=== PATIENT | male | born 1950 | race Caucasian/White ===

== ENCOUNTER 2017-01-01 14:32 | Inpatient (IN) | payer MEDICARE, OTHER ==
[~2017-01-01 14:32] MED LIST: ACETAMINOPHEN325 M2 PO; ALLOPURINOL300 M1 PO; AMPICILLIN SODIU2 G1 IV; ASMANEX220 MC3 IH; ASPIRIN325 M3 PO; ATENOLOL50 M1 PO; CALCIUM ACETAT667 M3 PO; CEFTRIAXONE2 GM IV; FUROSEMIDE40 M2 PO; LANTUS100 UNITS/ SC; LASIX40 M1 PO; LISINOPRIL40 M1 PO; MIRALAX17 G2 PO; MUCINEX600 M1 PO; NORVASC5 M2 PO; NOVOLOG FL100 UNIT/2 SC; OXYCONTIN10 M2 PO; PERCOCET 5-3251 EACH PO; PRAVASTATIN SOD80 M1 PO; PREVACID15 M2 PO; PROMETHAZINE HC25 M3 PO; SENOKOT-S TABL1 EACH PO; SODIUM BICARBO650 M1 PO; TYLENOL325 M2 PO
[2017-01-01] MEDS ORDERED: LIPITOR40 M1 PO (15:12)
[2017-01-01 17:04] LABS: URINE BILIRUBIN NEGATIVE (NEG); URINE BLOOD LARGE (NEG); URINE GLUCOSE (UA) NEGATIVE (NEG); URINE KETONE NEGATIVE (NEG); URINE LEUKOCYTE ESTERASE NEGATIVE (NEG); URINE NITRITE NEGATIVE (NEG); URINE PROTEIN LARGE (NEG); URINE SPECIFIC GRAVITY 1.015 (1.003-1.030)
[2017-01-01 17:05] LABS: URINE APPEARANCE CLEAR; URINE COLOR YELLOW
[2017-01-01 17:11] LABS: URINE EPITHELIAL CELLS RARE /[HPF] (0-10); URINE RBC 15-20 /[HPF] (0-5); URINE WBC 0-3 /[HPF] (0-5)
[2017-01-01 17:12] LABS: URINE AMORPHOUS 1+
[2017-01-01 17:55] LABS: ALBUMIN 2.2 g/dl (3.5-5.0); ANION GAP 16 mmol/L (0-20); BLOOD UREA NITROGEN 78 mg/dl (6-24); CALCIUM 7.8 mg/dl (8.5-10.5); CARBON DIOXIDE-VENOUS 17 mmol/L (22-32); CHLORIDE 104 mmol/l (96-110); CREATININE 3.67 mg/dl (0.60-1.30); GLUCOSE 113 mg/dL (70-110); PHOSPHOROUS 5.1 mg/dl (2.5-4.9); POTASSIUM 4.7 mmol/L (3.7-5.1); SODIUM 132 mmol/L (135-145); eGFR VALUE FOR BLACK 19 mL/Min
[2017-01-01 18:04] LABS: PROCALCITONIN 2.04 ng/ml (0.05-0.09)
[2017-01-01 18:21] LABS: URINE CREATININE-RANDOM 95 mg/dl (30-125); URINE SODIUM-RANDOM 35 mmol/L (20-110)
[2017-01-02 05:07] LABS: BASO % 0.1 % (0-2); EOS % 0.1 % (0-7); HGB-HEMOGLOBIN 7.4 gm/dl (13.5-17.0); IMMATURE GRANULOCYTES ABSOLUTE 0.04 tho/cmm (0-0.03); IMMATURE GRANULOCYTES PERCENT 0.6 % (0-0.3); LYMPH % 12.3 % (20-45); LYMPH ABSOLUTE COUNT 0.9 tho/cmm (0.8-4.5); MCH (MEAN CORPUSCULAR HGB) 26.5 pg (28.0-32.0); MCHC MEAN CORPUSCULAR HGB CONC 32.5 % (32.0-36.0); MCV (MEAN CELL VOLUME) 81.7 fl (82.0-96.0); MEAN PLATELET VOLUME 9.4 cmc (9.4-12.4); MONO % 4.8 % (0-12); MONOCYTE ABSOLUTE COUNT 0.3 tho/cmm (0.0-1.2); NEUTROPHIL ABSOLUTE COUNT 5.9 tho/cmm (1.6-8.0); NEUTROPHIL-AUTOMATED 5.9 tho/cmm (1.6-8.0); NEUTROPHILS % 82.1 % (40-80); PLATELET COUNT 121 tho/cmm (150-450); RED BLOOD COUNT 2.79 mil/cmm (4.40-5.70); RED CELL DISTRIBUTION WIDTH 16.6 % (12.4-16.4); WHITE BLOOD COUNT 7.2 tho/cmm (4.0-10.0)
[2017-01-02 05:12] LABS: HCT-HEMATOCRIT 22.8 % (36.0-53.5)
[2017-01-02 05:30] LABS: ALB/GLOB RATIO 0.4 (0.8-2.0); ALKALINE PHOSPHATASE 182 U/L (33-138); ALT/SGPT 39 U/L (12-78); ANION GAP 17 mmol/L (0-20); AST/SGOT 32 U/L (10-40); BILIRUBIN,TOTAL 0.4 mg/dl (0.0-1.5); BLOOD UREA NITROGEN 77 mg/dl (6-24); CALCIUM 7.7 mg/dl (8.5-10.5); CARBON DIOXIDE-VENOUS 16 mmol/L (22-32); CHLORIDE 107 mmol/l (96-110); FERRITIN 401 ng/ml (22-388); GLUCOSE 115 mg/dL (70-110); MAGNESIUM 2.1 mg/dl (1.8-2.6); PHOSPHOROUS 5.3 mg/dl (2.5-4.9); POTASSIUM 5.1 mmol/L (3.7-5.1); SODIUM 135 mmol/L (135-145); eGFR VALUE FOR BLACK 19 mL/Min
[2017-01-02 05:35] LABS: IRON 31 ug/dl (49-181); IRON BINDING CAPACITY 169 ug/dl (250-450)
[2017-01-02 06:38] LABS: PROCALCITONIN 2.05 ng/ml (0.05-0.09)
[2017-01-02 12:52] LABS: PF4 (HIT) ANTIBODY POSITIVE (NEGATIVE)
[2017-01-03 06:21] LABS: BASO % 0.1 % (0-2); EOS % 0.3 % (0-7); HGB-HEMOGLOBIN 7.9 gm/dl (13.5-17.0); IMMATURE GRANULOCYTES ABSOLUTE 0.04 tho/cmm (0-0.03); IMMATURE GRANULOCYTES PERCENT 0.4 % (0-0.3); LYMPH % 8.9 % (20-45); LYMPH ABSOLUTE COUNT 0.9 tho/cmm (0.8-4.5); MCH (MEAN CORPUSCULAR HGB) 27.2 pg (28.0-32.0); MCV (MEAN CELL VOLUME) 81.4 fl (82.0-96.0); MEAN PLATELET VOLUME 9.2 cmc (9.4-12.4); MONO % 4.3 % (0-12); MONOCYTE ABSOLUTE COUNT 0.4 tho/cmm (0.0-1.2); NEUTROPHIL ABSOLUTE COUNT 8.3 tho/cmm (1.6-8.0); NEUTROPHIL-AUTOMATED 8.3 tho/cmm (1.6-8.0); PLATELET COUNT 141 tho/cmm (150-450); WHITE BLOOD COUNT 9.7 tho/cmm (4.0-10.0)
[2017-01-03 06:23] LABS: HCT-HEMATOCRIT 23.6 % (36.0-53.5); MCHC MEAN CORPUSCULAR HGB CONC 33.5 % (32.0-36.0)
[2017-01-03 06:39] LABS: ALB/GLOB RATIO 0.4 (0.8-2.0); ALBUMIN 1.9 g/dl (3.5-5.0); ALKALINE PHOSPHATASE 198 U/L (33-138); ALT/SGPT 38 U/L (12-78); ANION GAP 16 mmol/L (0-20); AST/SGOT 35 U/L (10-40); BILIRUBIN,TOTAL 0.3 mg/dl (0.0-1.5); BLOOD UREA NITROGEN 81 mg/dl (6-24); CALCIUM 7.6 mg/dl (8.5-10.5); CARBON DIOXIDE-VENOUS 17 mmol/L (22-32); CHLORIDE 110 mmol/l (96-110); GLUCOSE 85 mg/dL (70-110); MAGNESIUM 2.2 mg/dl (1.8-2.6); SODIUM 138 mmol/L (135-145); eGFR VALUE FOR BLACK 19 mL/Min
[2017-01-03 07:35] LABS: PROCALCITONIN 1.83 ng/ml (0.05-0.09)
[2017-01-04 05:53] LABS: BASO % 0.2 % (0-2); EOS % 0.6 % (0-7); EOSINOPHIL ABSOLUTE COUNT 0.1 tho/cmm (0.0-0.7); HCT-HEMATOCRIT 25.1 % (36.0-53.5); HGB-HEMOGLOBIN 8.2 gm/dl (13.5-17.0); IMMATURE GRANULOCYTES ABSOLUTE 0.03 tho/cmm (0-0.03); IMMATURE GRANULOCYTES PERCENT 0.3 % (0-0.3); LYMPH ABSOLUTE COUNT 0.6 tho/cmm (0.8-4.5); MCH (MEAN CORPUSCULAR HGB) 26.9 pg (28.0-32.0); MCHC MEAN CORPUSCULAR HGB CONC 32.7 % (32.0-36.0); MCV (MEAN CELL VOLUME) 82.3 fl (82.0-96.0); MEAN PLATELET VOLUME 9.1 cmc (9.4-12.4); MONO % 4.1 % (0-12); MONOCYTE ABSOLUTE COUNT 0.4 tho/cmm (0.0-1.2); NEUTROPHIL ABSOLUTE COUNT 8.4 tho/cmm (1.6-8.0); NEUTROPHIL-AUTOMATED 8.4 tho/cmm (1.6-8.0); NEUTROPHILS % 88.8 % (40-80); PLATELET COUNT 156 tho/cmm (150-450); RED BLOOD COUNT 3.05 mil/cmm (4.40-5.70); RED CELL DISTRIBUTION WIDTH 17.3 % (12.4-16.4); WHITE BLOOD COUNT 9.4 tho/cmm (4.0-10.0)
[2017-01-04 06:04] LABS: ANION GAP 15 mmol/L (0-20); BLOOD UREA NITROGEN 81 mg/dl (6-24); CALCIUM 7.7 mg/dl (8.5-10.5); CARBON DIOXIDE-VENOUS 17 mmol/L (22-32); CHLORIDE 108 mmol/l (96-110); CREATININE 3.62 mg/dl (0.60-1.30); GLUCOSE 113 mg/dL (70-110); PHOSPHOROUS 5.9 mg/dl (2.5-4.9); POTASSIUM 4.7 mmol/L (3.7-5.1); SODIUM 135 mmol/L (135-145); eGFR VALUE FOR BLACK 19 mL/Min
[2017-01-04 23:04] LABS: MAGNESIUM 2.2 mg/dl (1.8-2.6); POTASSIUM 4.2 mmol/L (3.7-5.1)
[2017-01-05 07:06] LABS: BASO % 0.1 % (0-2); EOS % 1.1 % (0-7); EOSINOPHIL ABSOLUTE COUNT 0.1 tho/cmm (0.0-0.7); HCT-HEMATOCRIT 25.5 % (36.0-53.5); HGB-HEMOGLOBIN 8.3 gm/dl (13.5-17.0); IMMATURE GRANULOCYTES ABSOLUTE 0.03 tho/cmm (0-0.03); IMMATURE GRANULOCYTES PERCENT 0.4 % (0-0.3); LYMPH ABSOLUTE COUNT 0.7 tho/cmm (0.8-4.5); MCH (MEAN CORPUSCULAR HGB) 26.6 pg (28.0-32.0); MCHC MEAN CORPUSCULAR HGB CONC 32.5 % (32.0-36.0); MCV (MEAN CELL VOLUME) 81.7 fl (82.0-96.0); MEAN PLATELET VOLUME 8.9 cmc (9.4-12.4); MONOCYTE ABSOLUTE COUNT 0.3 tho/cmm (0.0-1.2); NEUTROPHIL ABSOLUTE COUNT 7.2 tho/cmm (1.6-8.0); NEUTROPHIL-AUTOMATED 7.2 tho/cmm (1.6-8.0); NEUTROPHILS % 86.4 % (40-80); PLATELET COUNT 165 tho/cmm (150-450); RED BLOOD COUNT 3.12 mil/cmm (4.40-5.70); RED CELL DISTRIBUTION WIDTH 17.1 % (12.4-16.4); WHITE BLOOD COUNT 8.3 tho/cmm (4.0-10.0)
[2017-01-05 07:13] LABS: ANION GAP 17 mmol/L (0-20); BLOOD UREA NITROGEN 80 mg/dl (6-24); CALCIUM 7.9 mg/dl (8.5-10.5); CARBON DIOXIDE-VENOUS 18 mmol/L (22-32); CHLORIDE 108 mmol/l (96-110); CREATININE 3.71 mg/dl (0.60-1.30); GLUCOSE 107 mg/dL (70-110); MAGNESIUM 2.1 mg/dl (1.8-2.6); POTASSIUM 4.5 mmol/L (3.7-5.1); SODIUM 138 mmol/L (135-145); eGFR VALUE FOR BLACK 19 mL/Min
[2017-01-06 04:26] LABS: BASO % 0.1 % (0-2); EOS % 1.3 % (0-7); EOSINOPHIL ABSOLUTE COUNT 0.1 tho/cmm (0.0-0.7); HGB-HEMOGLOBIN 7.5 gm/dl (13.5-17.0); IMMATURE GRANULOCYTES ABSOLUTE 0.05 tho/cmm (0-0.03); IMMATURE GRANULOCYTES PERCENT 0.7 % (0-0.3); LYMPH % 11.8 % (20-45); LYMPH ABSOLUTE COUNT 0.8 tho/cmm (0.8-4.5); MCH (MEAN CORPUSCULAR HGB) 26.7 pg (28.0-32.0); MCHC MEAN CORPUSCULAR HGB CONC 32.5 % (32.0-36.0); MCV (MEAN CELL VOLUME) 82.2 fl (82.0-96.0); MEAN PLATELET VOLUME 8.9 cmc (9.4-12.4); MONO % 5.1 % (0-12); MONOCYTE ABSOLUTE COUNT 0.3 tho/cmm (0.0-1.2); NEUTROPHIL ABSOLUTE COUNT 5.4 tho/cmm (1.6-8.0); NEUTROPHIL-AUTOMATED 5.4 tho/cmm (1.6-8.0); PLATELET COUNT 151 tho/cmm (150-450); RED BLOOD COUNT 2.81 mil/cmm (4.40-5.70); RED CELL DISTRIBUTION WIDTH 17.5 % (12.4-16.4); WHITE BLOOD COUNT 6.7 tho/cmm (4.0-10.0)
[2017-01-06 04:30] LABS: HCT-HEMATOCRIT 23.1 % (36.0-53.5)
[2017-01-06 04:43] LABS: ALBUMIN 1.7 g/dl (3.5-5.0); ANION GAP 17 mmol/L (0-20); BLOOD UREA NITROGEN 82 mg/dl (6-24); CALCIUM 7.5 mg/dl (8.5-10.5); CARBON DIOXIDE-VENOUS 20 mmol/L (22-32); CHLORIDE 105 mmol/l (96-110); CREATININE 4.05 mg/dl (0.60-1.30); GLUCOSE 87 mg/dL (70-110); MAGNESIUM 2.1 mg/dl (1.8-2.6); PHOSPHOROUS 7.5 mg/dl (2.5-4.9); POTASSIUM 3.7 mmol/L (3.7-5.1); SODIUM 138 mmol/L (135-145); eGFR VALUE FOR BLACK 17 mL/Min
[2017-01-07 04:11] LABS: BASO % 0.2 % (0-2); EOS % 1.4 % (0-7); EOSINOPHIL ABSOLUTE COUNT 0.1 tho/cmm (0.0-0.7); HGB-HEMOGLOBIN 7.4 gm/dl (13.5-17.0); IMMATURE GRANULOCYTES ABSOLUTE 0.05 tho/cmm (0-0.03); IMMATURE GRANULOCYTES PERCENT 0.6 % (0-0.3); LYMPH % 8.9 % (20-45); LYMPH ABSOLUTE COUNT 0.7 tho/cmm (0.8-4.5); MCH (MEAN CORPUSCULAR HGB) 27.1 pg (28.0-32.0); MCV (MEAN CELL VOLUME) 83.2 fl (82.0-96.0); MEAN PLATELET VOLUME 8.8 cmc (9.4-12.4); MONO % 5.1 % (0-12); MONOCYTE ABSOLUTE COUNT 0.4 tho/cmm (0.0-1.2); NEUTROPHILS % 83.8 % (40-80); PLATELET COUNT 150 tho/cmm (150-450); RED BLOOD COUNT 2.73 mil/cmm (4.40-5.70); RED CELL DISTRIBUTION WIDTH 17.4 % (12.4-16.4); WHITE BLOOD COUNT 8.3 tho/cmm (4.0-10.0)
[2017-01-07 04:18] LABS: INR 1.2 INR (0.9-1.1); PROTHROMBIN TIME 13.6 SECONDS (9.0-13.6)
[2017-01-07 04:25] LABS: ANION GAP 14 mmol/L (0-20); BLOOD UREA NITROGEN 75 mg/dl (6-24); CALCIUM 7.1 mg/dl (8.5-10.5); CARBON DIOXIDE-VENOUS 21 mmol/L (22-32); CHLORIDE 108 mmol/l (96-110); CREATININE 3.82 mg/dl (0.60-1.30); GLUCOSE 86 mg/dL (70-110); HCT-HEMATOCRIT 22.7 % (36.0-53.5); MCHC MEAN CORPUSCULAR HGB CONC 32.6 % (32.0-36.0); POTASSIUM 3.4 mmol/L (3.7-5.1); SODIUM 140 mmol/L (135-145); eGFR VALUE FOR BLACK 18 mL/Min
[2017-01-08 05:26] LABS: BASO % 0.3 % (0-2); EOS % 1.1 % (0-7); EOSINOPHIL ABSOLUTE COUNT 0.1 tho/cmm (0.0-0.7); HCT-HEMATOCRIT 24.8 % (36.0-53.5); HGB-HEMOGLOBIN 7.9 gm/dl (13.5-17.0); IMMATURE GRANULOCYTES ABSOLUTE 0.11 tho/cmm (0-0.03); IMMATURE GRANULOCYTES PERCENT 1.2 % (0-0.3); LYMPH % 10.5 % (20-45); MCH (MEAN CORPUSCULAR HGB) 26.7 pg (28.0-32.0); MCHC MEAN CORPUSCULAR HGB CONC 31.9 % (32.0-36.0); MCV (MEAN CELL VOLUME) 83.8 fl (82.0-96.0); MEAN PLATELET VOLUME 9.2 cmc (9.4-12.4); MONO % 5.1 % (0-12); MONOCYTE ABSOLUTE COUNT 0.5 tho/cmm (0.0-1.2); NEUTROPHIL ABSOLUTE COUNT 7.7 tho/cmm (1.6-8.0); NEUTROPHIL-AUTOMATED 7.7 tho/cmm (1.6-8.0); NEUTROPHILS % 81.8 % (40-80); PLATELET COUNT 153 tho/cmm (150-450); RED BLOOD COUNT 2.96 mil/cmm (4.40-5.70); RED CELL DISTRIBUTION WIDTH 18.4 % (12.4-16.4); WHITE BLOOD COUNT 9.4 tho/cmm (4.0-10.0)
[2017-01-08 05:35] LABS: ANION GAP 12 mmol/L (0-20); BLOOD UREA NITROGEN 54 mg/dl (6-24); CALCIUM 7.3 mg/dl (8.5-10.5); CARBON DIOXIDE-VENOUS 24 mmol/L (22-32); CHLORIDE 104 mmol/l (96-110); CREATININE 3.72 mg/dl (0.60-1.30); PHOSPHOROUS 5.2 mg/dl (2.5-4.9); POTASSIUM 3.2 mmol/L (3.7-5.1); SODIUM 137 mmol/L (135-145); eGFR VALUE FOR BLACK 19 mL/Min
[2017-01-08 05:43] LABS: GLUCOSE 49 mg/dL (70-110)
--- NOTE | 2017-01-08 07:36 | NUR ---
0550 PT GROGGY BUT ANWSERS QUESTIONS APPROPROATELY. GLUCOSE CHECKED 51 APPLE JUICE WITH SUGAR GIVEN. 0610 BS 74 REPEATED JUICE WITH SUGAR. 0625 GLUCOSE 83 WILL MONITOR/ [id number] UNABLE TO GET TEMP PT PLACED ON BARE HUGGER WILL MONITOR
[2017-01-09 03:53] LABS: BASO % 0.3 % (0-2); EOS % 1.6 % (0-7); EOSINOPHIL ABSOLUTE COUNT 0.2 tho/cmm (0.0-0.7); HCT-HEMATOCRIT 25.8 % (36.0-53.5); HGB-HEMOGLOBIN 8.1 gm/dl (13.5-17.0); IMMATURE GRANULOCYTES ABSOLUTE 0.19 tho/cmm (0-0.03); IMMATURE GRANULOCYTES PERCENT 1.9 % (0-0.3); LYMPH % 11.6 % (20-45); LYMPH ABSOLUTE COUNT 1.2 tho/cmm (0.8-4.5); MCH (MEAN CORPUSCULAR HGB) 26.7 pg (28.0-32.0); MCHC MEAN CORPUSCULAR HGB CONC 31.4 % (32.0-36.0); MCV (MEAN CELL VOLUME) 85.1 fl (82.0-96.0); MEAN PLATELET VOLUME 9.1 cmc (9.4-12.4); MONOCYTE ABSOLUTE COUNT 0.6 tho/cmm (0.0-1.2); NEUTROPHILS % 78.6 % (40-80); PLATELET COUNT 151 tho/cmm (150-450); RED BLOOD COUNT 3.03 mil/cmm (4.40-5.70); RED CELL DISTRIBUTION WIDTH 18.5 % (12.4-16.4); WHITE BLOOD COUNT 10.2 tho/cmm (4.0-10.0)
[2017-01-09 04:31] LABS: ANION GAP 11 mmol/L (0-20); BLOOD UREA NITROGEN 41 mg/dl (6-24); CALCIUM 7.2 mg/dl (8.5-10.5); CARBON DIOXIDE-VENOUS 24 mmol/L (22-32); CHLORIDE 102 mmol/l (96-110); CREATININE 3.55 mg/dl (0.60-1.30); PHOSPHOROUS 3.6 mg/dl (2.5-4.9); SODIUM 133 mmol/L (135-145); eGFR VALUE FOR BLACK 20 mL/Min
[2017-01-09 04:37] LABS: GLUCOSE 108 mg/dL (70-110)
[2017-01-10 03:49] LABS: HCT-HEMATOCRIT 25.7 % (36.0-53.5); RED CELL DISTRIBUTION WIDTH 19.2 % (12.4-16.4)
[2017-01-10 04:18] LABS: ALB/GLOB RATIO 0.4 (0.8-2.0); ALBUMIN 1.9 g/dl (3.5-5.0); ALKALINE PHOSPHATASE 159 U/L (33-138); ALT/SGPT 22 U/L (12-78); ANION GAP 10 mmol/L (0-20); AST/SGOT 29 U/L (10-40); BILIRUBIN,TOTAL 0.6 mg/dl (0.0-1.5); BLOOD UREA NITROGEN 28 mg/dl (6-24); CALCIUM 7.6 mg/dl (8.5-10.5); CARBON DIOXIDE-VENOUS 25 mmol/L (22-32); CHLORIDE 102 mmol/l (96-110); CREATININE 3.37 mg/dl (0.60-1.30); GLUCOSE 93 mg/dL (70-110); PHOSPHOROUS 3.2 mg/dl (2.5-4.9); POTASSIUM 3.9 mmol/L (3.7-5.1); SODIUM 133 mmol/L (135-145); eGFR VALUE FOR BLACK 21 mL/Min
[2017-01-11 05:17] LABS: ANION GAP 15 mmol/L (0-20); BLOOD UREA NITROGEN 40 mg/dl (6-24); CALCIUM 7.8 mg/dl (8.5-10.5); CARBON DIOXIDE-VENOUS 23 mmol/L (22-32); CHLORIDE 102 mmol/l (96-110); GLUCOSE 119 mg/dL (70-110); POTASSIUM 4.4 mmol/L (3.7-5.1); SODIUM 136 mmol/L (135-145); eGFR VALUE FOR BLACK 16 mL/Min
[2017-01-11 05:20] LABS: CREATININE 4.22 mg/dl (0.60-1.30)
[2017-01-11 05:27] LABS: HCT-HEMATOCRIT 28.4 % (36.0-53.5); HGB-HEMOGLOBIN 8.9 gm/dl (13.5-17.0); MCV (MEAN CELL VOLUME) 86.1 fl (82.0-96.0); RED CELL DISTRIBUTION WIDTH 19.7 % (12.4-16.4)
[2017-01-13 04:28] LABS: BASO % 0.2 % (0-2); EOSINOPHIL ABSOLUTE COUNT 0.2 tho/cmm (0.0-0.7); HGB-HEMOGLOBIN 8.8 gm/dl (13.5-17.0); IMMATURE GRANULOCYTES ABSOLUTE 0.13 tho/cmm (0-0.03); IMMATURE GRANULOCYTES PERCENT 0.8 % (0-0.3); LYMPH % 8.2 % (20-45); LYMPH ABSOLUTE COUNT 1.3 tho/cmm (0.8-4.5); MCH (MEAN CORPUSCULAR HGB) 26.6 pg (28.0-32.0); MCHC MEAN CORPUSCULAR HGB CONC 30.3 % (32.0-36.0); MCV (MEAN CELL VOLUME) 87.6 fl (82.0-96.0); MEAN PLATELET VOLUME 9.9 cmc (9.4-12.4); MONO % 4.6 % (0-12); MONOCYTE ABSOLUTE COUNT 0.7 tho/cmm (0.0-1.2); NEUTROPHILS % 85.2 % (40-80); PLATELET COUNT 151 tho/cmm (150-450); RED BLOOD COUNT 3.31 mil/cmm (4.40-5.70); RED CELL DISTRIBUTION WIDTH 20.4 % (12.4-16.4); WHITE BLOOD COUNT 15.3 tho/cmm (4.0-10.0)
[2017-01-13 04:33] LABS: ANION GAP 14 mmol/L (0-20); BLOOD UREA NITROGEN 52 mg/dl (6-24); CALCIUM 7.4 mg/dl (8.5-10.5); CARBON DIOXIDE-VENOUS 23 mmol/L (22-32); CHLORIDE 101 mmol/l (96-110); CREATININE 4.48 mg/dl (0.60-1.30); GLUCOSE 131 mg/dL (70-110); POTASSIUM 4.3 mmol/L (3.7-5.1); SODIUM 134 mmol/L (135-145); eGFR VALUE FOR BLACK 15 mL/Min
[2017-01-14 04:28] LABS: ANION GAP 14 mmol/L (0-20); BLOOD UREA NITROGEN 65 mg/dl (6-24); CALCIUM 7.4 mg/dl (8.5-10.5); CARBON DIOXIDE-VENOUS 22 mmol/L (22-32); CHLORIDE 101 mmol/l (96-110); GLUCOSE 96 mg/dL (70-110); POTASSIUM 4.6 mmol/L (3.7-5.1); SODIUM 132 mmol/L (135-145); eGFR VALUE FOR BLACK 13 mL/Min
[2017-01-14 04:31] LABS: BASO % 0.2 % (0-2); EOS % 0.9 % (0-7); EOSINOPHIL ABSOLUTE COUNT 0.1 tho/cmm (0.0-0.7); HCT-HEMATOCRIT 27.4 % (36.0-53.5); HGB-HEMOGLOBIN 8.4 gm/dl (13.5-17.0); LYMPH % 9.7 % (20-45); LYMPH ABSOLUTE COUNT 1.3 tho/cmm (0.8-4.5); MCH (MEAN CORPUSCULAR HGB) 27.5 pg (28.0-32.0); MCHC MEAN CORPUSCULAR HGB CONC 30.7 % (32.0-36.0); MCV (MEAN CELL VOLUME) 89.5 fl (82.0-96.0); MEAN PLATELET VOLUME 10.6 cmc (9.4-12.4); MONO % 5.1 % (0-12); MONOCYTE ABSOLUTE COUNT 0.7 tho/cmm (0.0-1.2); NEUTROPHIL ABSOLUTE COUNT 11.6 tho/cmm (1.6-8.0); NEUTROPHIL-AUTOMATED 11.6 tho/cmm (1.6-8.0); NEUTROPHILS % 84.1 % (40-80); PLATELET COUNT 156 tho/cmm (150-450); RED BLOOD COUNT 3.06 mil/cmm (4.40-5.70); RED CELL DISTRIBUTION WIDTH 20.5 % (12.4-16.4); WHITE BLOOD COUNT 13.8 tho/cmm (4.0-10.0)
[2017-01-14 05:52] LABS: ESR-ERYTHROCYTE SED RATE 70 mm/hr (0-20)
[2017-01-14 06:29] LABS: PROCALCITONIN 1.51 ng/ml (0.05-0.09)
--- NOTE | 2017-01-15 18:07 | NUR ---
AGREE WITH STUDENT
[2017-01-16 04:26] LABS: BASO % 0.2 % (0-2); EOS % 1.3 % (0-7); EOSINOPHIL ABSOLUTE COUNT 0.2 tho/cmm (0.0-0.7); HCT-HEMATOCRIT 25.2 % (36.0-53.5); HGB-HEMOGLOBIN 7.9 gm/dl (13.5-17.0); IMMATURE GRANULOCYTES PERCENT 0.8 % (0-0.3); LYMPH % 8.4 % (20-45); LYMPH ABSOLUTE COUNT 1.1 tho/cmm (0.8-4.5); MCH (MEAN CORPUSCULAR HGB) 27.1 pg (28.0-32.0); MCHC MEAN CORPUSCULAR HGB CONC 31.3 % (32.0-36.0); MCV (MEAN CELL VOLUME) 86.6 fl (82.0-96.0); MONO % 5.7 % (0-12); MONOCYTE ABSOLUTE COUNT 0.8 tho/cmm (0.0-1.2); NEUTROPHIL ABSOLUTE COUNT 10.9 tho/cmm (1.6-8.0); NEUTROPHIL-AUTOMATED 10.9 tho/cmm (1.6-8.0); NEUTROPHILS % 83.6 % (40-80); PLATELET COUNT 170 tho/cmm (150-450); RED BLOOD COUNT 2.91 mil/cmm (4.40-5.70); WHITE BLOOD COUNT 13.1 tho/cmm (4.0-10.0)
[2017-01-16 04:41] LABS: ALBUMIN 1.8 g/dl (3.5-5.0); ANION GAP 17 mmol/L (0-20); BLOOD UREA NITROGEN 50 mg/dl (6-24); CALCIUM 7.5 mg/dl (8.5-10.5); CARBON DIOXIDE-VENOUS 23 mmol/L (22-32); CHLORIDE 96 mmol/l (96-110); CREATININE 4.61 mg/dl (0.60-1.30); GLUCOSE 137 mg/dL (70-110); PHOSPHOROUS 4.8 mg/dl (2.5-4.9); POTASSIUM 4.6 mmol/L (3.7-5.1); SODIUM 131 mmol/L (135-145); eGFR VALUE FOR BLACK 14 mL/Min
[2017-01-18 06:23] LABS: BASO % 0.6 % (0-2); BASO ABSOLUTE COUNT 0.1 tho/cmm (0.0-0.2); EOS % 1.9 % (0-7); EOSINOPHIL ABSOLUTE COUNT 0.2 tho/cmm (0.0-0.7); HCT-HEMATOCRIT 25.9 % (36.0-53.5); IMMATURE GRANULOCYTES ABSOLUTE 0.23 tho/cmm (0-0.03); LYMPH % 7.4 % (20-45); LYMPH ABSOLUTE COUNT 0.8 tho/cmm (0.8-4.5); MCHC MEAN CORPUSCULAR HGB CONC 30.9 % (32.0-36.0); MCV (MEAN CELL VOLUME) 87.5 fl (82.0-96.0); MEAN PLATELET VOLUME 9.5 cmc (9.4-12.4); MONO % 4.7 % (0-12); MONOCYTE ABSOLUTE COUNT 0.5 tho/cmm (0.0-1.2); NEUTROPHIL ABSOLUTE COUNT 9.5 tho/cmm (1.6-8.0); NEUTROPHIL-AUTOMATED 9.5 tho/cmm (1.6-8.0); NEUTROPHILS % 83.4 % (40-80); PLATELET COUNT 222 tho/cmm (150-450); RED BLOOD COUNT 2.96 mil/cmm (4.40-5.70); RED CELL DISTRIBUTION WIDTH 19.4 % (12.4-16.4); WHITE BLOOD COUNT 11.4 tho/cmm (4.0-10.0)
[2017-01-18 06:36] LABS: ALBUMIN 1.7 g/dl (3.5-5.0); ANION GAP 16 mmol/L (0-20); BLOOD UREA NITROGEN 40 mg/dl (6-24); CARBON DIOXIDE-VENOUS 19 mmol/L (22-32); CHLORIDE 102 mmol/l (96-110); CREATININE 4.19 mg/dl (0.60-1.30); GLUCOSE 76 mg/dL (70-110); PHOSPHOROUS 4.7 mg/dl (2.5-4.9); POTASSIUM 4.3 mmol/L (3.7-5.1); SODIUM 133 mmol/L (135-145); eGFR VALUE FOR BLACK 16 mL/Min
[2017-01-18] MEDS ORDERED: TOPROL XL50 M1 PO (12:51)
[2017-01-25] MEDS ORDERED: TYLENOL325 M2 PO (16:16)
[2017-01-25] MEDS ORDERED: ZOFRAN4 M2 PO (16:20)
[2017-01-25] MEDS ORDERED: MULTI VITAMIN1 EAC2 PO (16:20)
[2017-02-06] MEDS ORDERED: AMOXICILLIN500 M1 PO (12:22)
[2017-02-06] MEDS ORDERED: IPRAT-ALBUT 0.5-3 ML INH (12:23)
[2017-02-06] MEDS ORDERED: ELIQUIS2.5 M1 PO (12:24)
[2017-02-06] MEDS ORDERED: HYDRALAZINE HCL25 M1 PO (12:28)
[2017-02-06] MEDS ORDERED: MIRALAX17 G2 PO (12:31)
[2017-02-06] MEDS ORDERED: COLACE100 M1 PO (12:31)
[2017-02-06] MEDS ORDERED: NOVOLOG100 UNITS/ (12:33)
[2017-02-06] MEDS ORDERED: LEVEMIR100 UNITS/ SC (12:34)
[2017-02-06] MEDS ORDERED: GLUCAGEN1 MG/1 ML IM (12:38)
[2017-02-06] MEDS ORDERED: MELATONIN3 M4 PO (12:39)
[2017-02-06] MEDS ORDERED: THEOPHYLLINE A200 M1 PO (12:44)
[2017-02-06] MEDS ORDERED: ASPIRIN81 M1 PO (13:54)
[2017-02-13] MEDS ORDERED: ATORVASTATIN CA40 M1 PO (02:18)
[2017-02-13] MEDS ORDERED: PRINIVIL20 M1 PO (02:21)
[2017-02-13] MEDS ORDERED: XANAX0.5 M1 PO (02:27)
[2017-02-22] MEDS ORDERED: TYLENOL EXTRA500 M1 PO ×2 (15:15→15:18)
[2017-02-22] MEDS ORDERED: RESTORIL15 M1 PO (15:19)
[2017-02-22] MEDS ORDERED: MELATIN3 MG PO (15:23)
[2017-02-22] MEDS ORDERED: VANCOMYCIN HCL500 MG IV (15:26)
[2017-03-07] MEDS ORDERED: DIPHENHYDRAMINE25 M3 PO (19:59)
[2017-03-07] MEDS ORDERED: BENADRYL25 M3 PO (20:00)
[2017-03-07] MEDS ORDERED: MELATONIN3 M4 PO (20:03)
[2017-03-07] MEDS ORDERED: ASPIRIN EC81 MG PO (20:06)
[2017-03-07] MEDS ORDERED: ACETAMINOPHEN650 MG PR (20:13)
[2017-03-07] MEDS ORDERED: FLEET ENEMA133 ML PR (20:14)
[2017-03-07] MEDS ORDERED: ZOLOFT25 M1 PO (20:15)
[2017-03-07] MEDS ORDERED: KLONOPIN0.5 M1 PO (20:16)
== END 2017-01-18 15:14 | DRG 673 ==
LOC: CAR1 14:32 → PCUB 19:45 → ORW 01-11 08:43 → PACU 01-11 09:00 → PCUB 01-11 09:53 → 5WE 01-15 16:00
PROVIDERS: Internal Medicine; Internal Medicine Cardiovascular Disease; Internal Medicine Interventional Cardiology; Internal Medicine Nephrology; Nurse Practitioner; ADMIT Hospitalist
PROC: 031C0ZF Bypass Left Radial Artery to Lower Arm Vein, Open Approach (ICD-10-PCS; principal; 2017-01-01)
PROC: 02HV33Z Insertion of Infusion Device into Superior Vena Cava, Percutaneous Approach (ICD-10-PCS; 2017-01-01)
DX: I12.0 Hypertensive chronic kidney disease with stage 5 chronic kidney disease or end stage renal disease (principal); N18.6 End stage renal disease; I50.33 Acute on chronic diastolic (congestive) heart failure; N17.9 Acute kidney failure, unspecified; D69.6 Thrombocytopenia, unspecified; Z68.41 Body mass index [BMI] 40.0-44.9, adult; E66.01 Morbid (severe) obesity due to excess calories; E11.21 Type 2 diabetes mellitus with diabetic nephropathy; E11.9 Type 2 diabetes mellitus without complications; E78.5 Hyperlipidemia, unspecified; D63.8 Anemia in other chronic diseases classified elsewhere; Z79.82 Long term (current) use of aspirin; Z79.4 Long term (current) use of insulin
CPT/HCPCS: C1750; C1751; C1752; C1769; C8925; C8929; G8978-GP-CJ; G8979-GP-CI; G8987-GO-CJ; G8988-GO-CI; G8989-GO-CJ; J0290; J0690; J0696; J0885; J1644; J1756; J1815; J1940; J2150; J2250; J2270; J2405; J3010; J3370; J7030; J7040; J7050; P9016; P9047

== ENCOUNTER 2017-03-29 20:43 | Inpatient (IN) | payer MEDICARE, OTHER ==
[~2017-03-29] VITALS: Ht 180.3 cm; Wt 114.0 kg
[~2017-03-29 20:43] MED LIST changes: +ACETAMINOPHEN650 MG PR; +AMOXICILLIN500 M1 PO; +ASPIRIN EC81 MG PO; +ASPIRIN81 M1 PO; +ATORVASTATIN CA40 M1 PO; +BENADRYL25 M3 PO; +COLACE100 M1 PO; +DIPHENHYDRAMINE25 M3 PO; +ELIQUIS2.5 M1 PO; +FLEET ENEMA133 ML PR; +GLUCAGEN1 MG/1 ML IM; +HYDRALAZINE HCL25 M1 PO; +IPRAT-ALBUT 0.5-3 ML INH; +KLONOPIN0.5 M1 PO; +LEVEMIR100 UNITS/ SC; +LIPITOR40 M1 PO; +MELATIN3 MG PO; +MELATONIN3 M4 PO; +MULTI VITAMIN1 EAC2 PO; +NOVOLOG100 UNITS/; +PRINIVIL20 M1 PO; +RESTORIL15 M1 PO; +THEOPHYLLINE A200 M1 PO; +TOPROL XL50 M1 PO; +TYLENOL EXTRA500 M1 PO; +VANCOMYCIN HCL500 MG IV; +XANAX0.5 M1 PO; +ZOFRAN4 M2 PO; +ZOLOFT25 M1 PO
[2017-03-29] MEDS ORDERED: FERRIC CITRATE210 MG PO (21:08)
[2017-03-29] MEDS ORDERED: ELIQUIS2.5 M1 PO (21:09)
[2017-03-29 21:25] LABS: BASO % 0.2 % (0-2); EOS % 0.6 % (0-7); EOSINOPHIL ABSOLUTE COUNT 0.1 tho/cmm (0.0-0.7); HCT-HEMATOCRIT 38.6 % (36.0-53.5); HGB-HEMOGLOBIN 12.4 gm/dl (13.5-17.0); IMMATURE GRANULOCYTES ABSOLUTE 0.06 tho/cmm (0-0.03); IMMATURE GRANULOCYTES PERCENT 0.6 % (0-0.3); LYMPH % 11.3 % (20-45); LYMPH ABSOLUTE COUNT 1.1 tho/cmm (0.8-4.5); MCH (MEAN CORPUSCULAR HGB) 27.9 pg (28.0-32.0); MCHC MEAN CORPUSCULAR HGB CONC 32.1 % (32.0-36.0); MEAN PLATELET VOLUME 10.3 cmc (9.4-12.4); MONO % 8.4 % (0-12); MONOCYTE ABSOLUTE COUNT 0.8 tho/cmm (0.0-1.2); NEUTROPHIL ABSOLUTE COUNT 7.5 tho/cmm (1.6-8.0); NEUTROPHIL-AUTOMATED 7.5 tho/cmm (1.6-8.0); NEUTROPHILS % 78.9 % (40-80); PLATELET COUNT 178 tho/cmm (150-450); RED BLOOD COUNT 4.45 mil/cmm (4.40-5.70); RED CELL DISTRIBUTION WIDTH 18.5 % (12.4-16.4); WHITE BLOOD COUNT 9.5 tho/cmm (4.0-10.0)
[2017-03-29 21:33] LABS: MCV (MEAN CELL VOLUME) 86.7 fl (82.0-96.0)
[2017-03-29 21:43] LABS: INR 1.8 INR (0.9-1.1)
[2017-03-29 22:54] LABS: ALB/GLOB RATIO 0.6 (0.8-2.0); ALBUMIN 2.8 g/dl (3.5-5.0); ALKALINE PHOSPHATASE 243 U/L (33-138); ALT/SGPT 43 U/L (12-78); BILIRUBIN,TOTAL 0.9 mg/dl (0.0-1.5); BLOOD UREA NITROGEN 48 mg/dl (6-24); CALCIUM 9.1 mg/dl (8.5-10.5); CARBON DIOXIDE-VENOUS 21 mmol/L (22-32); CHLORIDE 95 mmol/l (96-110); CREATININE 5.97 mg/dl (0.60-1.30); GLUCOSE 108 mg/dL (70-110); SODIUM 127 mmol/L (135-145); eGFR VALUE FOR BLACK 11 mL/Min
[2017-03-29 22:58] LABS: ANION GAP 17 mmol/L (0-20)
[2017-03-29 22:59] LABS: AST/SGOT 65 U/L (10-40)
[2017-03-30 00:08] LABS: ALB/GLOB RATIO 0.6 (0.8-2.0); ALBUMIN 2.8 g/dl (3.5-5.0); ALKALINE PHOSPHATASE 250 U/L (33-138); ALT/SGPT 44 U/L (12-78); ANION GAP 17 mmol/L (0-20); AST/SGOT 63 U/L (10-40); BLOOD UREA NITROGEN 49 mg/dl (6-24); CALCIUM 9.1 mg/dl (8.5-10.5); CARBON DIOXIDE-VENOUS 19 mmol/L (22-32); CHLORIDE 95 mmol/l (96-110); CREATININE 5.92 mg/dl (0.60-1.30); GLUCOSE 109 mg/dL (70-110); POTASSIUM 5.4 mmol/L (3.7-5.1); SODIUM 126 mmol/L (135-145); eGFR VALUE FOR BLACK 11 mL/Min
[2017-03-30 05:40] LABS: BASO % 0.3 % (0-2); EOS % 0.7 % (0-7); EOSINOPHIL ABSOLUTE COUNT 0.1 tho/cmm (0.0-0.7); HCT-HEMATOCRIT 39.3 % (36.0-53.5); HGB-HEMOGLOBIN 12.4 gm/dl (13.5-17.0); IMMATURE GRANULOCYTES ABSOLUTE 0.04 tho/cmm (0-0.03); IMMATURE GRANULOCYTES PERCENT 0.4 % (0-0.3); LYMPH % 12.7 % (20-45); LYMPH ABSOLUTE COUNT 1.2 tho/cmm (0.8-4.5); MCH (MEAN CORPUSCULAR HGB) 27.2 pg (28.0-32.0); MCHC MEAN CORPUSCULAR HGB CONC 31.6 % (32.0-36.0); MCV (MEAN CELL VOLUME) 86.2 fl (82.0-96.0); MEAN PLATELET VOLUME 10.4 cmc (9.4-12.4); MONO % 6.1 % (0-12); MONOCYTE ABSOLUTE COUNT 0.6 tho/cmm (0.0-1.2); NEUTROPHIL ABSOLUTE COUNT 7.3 tho/cmm (1.6-8.0); NEUTROPHIL-AUTOMATED 7.3 tho/cmm (1.6-8.0); NEUTROPHILS % 79.8 % (40-80); PLATELET COUNT 161 tho/cmm (150-450); RED BLOOD COUNT 4.56 mil/cmm (4.40-5.70); RED CELL DISTRIBUTION WIDTH 18.6 % (12.4-16.4); WHITE BLOOD COUNT 9.1 tho/cmm (4.0-10.0)
[2017-03-30 06:30] LABS: ALB/GLOB RATIO 0.6 (0.8-2.0); ALBUMIN 2.7 g/dl (3.5-5.0); ALKALINE PHOSPHATASE 252 U/L (33-138); ALT/SGPT 59 U/L (12-78); BILIRUBIN,TOTAL 1.1 mg/dl (0.0-1.5); BLOOD UREA NITROGEN 51 mg/dl (6-24); CALCIUM 8.9 mg/dl (8.5-10.5); CARBON DIOXIDE-VENOUS 15 mmol/L (22-32); CHLORIDE 95 mmol/l (96-110); GLUCOSE 79 mg/dL (70-110); PHOSPHOROUS 7.9 mg/dl (2.5-4.9); SODIUM 125 mmol/L (135-145); eGFR VALUE FOR BLACK 11 mL/Min
[2017-03-30 06:32] LABS: ANION GAP 21 mmol/L (0-20); AST/SGOT 91 U/L (10-40); MAGNESIUM 2.2 mg/dl (1.8-2.6)
[2017-03-30 06:34] LABS: POTASSIUM 6.2 mmol/L (3.7-5.1)
== END 2017-03-30 16:30 | disposition expired | DRG 314 ==
LOC: EDMED → EDBD 20:43 → EMR2 03-30 00:13 → PCUB 03-30 00:13 → 5WD 03-30 00:13 → PCUB 03-30 02:19
PROVIDERS: Emergency Medicine; ADMIT Internal Medicine
PROC: 5A09357 Assistance with Respiratory Ventilation, Less than 24 Consecutive Hours, Continuous Positive Airway Pressure (ICD-10-PCS; principal; 2017-03-30)
PROC: 5A1D00Z (ICD-10-PCS; 2017-03-30)
DX: T82.6XXA Infection and inflammatory reaction due to cardiac valve prosthesis, initial encounter (principal); A41.9 Sepsis, unspecified organism; I50.33 Acute on chronic diastolic (congestive) heart failure; T82.02XA Displacement of heart valve prosthesis, initial encounter; N18.6 End stage renal disease; E87.2 Acidosis; I48.92 Unspecified atrial flutter; I95.9 Hypotension, unspecified; I33.0 Acute and subacute infective endocarditis; E87.1 Hypo-osmolality and hyponatremia; I13.2 Hypertensive heart and chronic kidney disease with heart failure and with stage 5 chronic kidney disease, or end stage renal disease; E11.22 Type 2 diabetes mellitus with diabetic chronic kidney disease; I46.2 Cardiac arrest due to underlying cardiac condition; N31.9 Neuromuscular dysfunction of bladder, unspecified; Z79.01 Long term (current) use of anticoagulants; J44.9 Chronic obstructive pulmonary disease, unspecified; E87.5 Hyperkalemia; I35.8 Other nonrheumatic aortic valve disorders; R79.89 Other specified abnormal findings of blood chemistry; I08.1 Rheumatic disorders of both mitral and tricuspid valves; Z99.2 Dependence on renal dialysis; B95.2 Enterococcus as the cause of diseases classified elsewhere; E78.5 Hyperlipidemia, unspecified; G47.33 Obstructive sleep apnea (adult) (pediatric); Z86.73 Personal history of transient ischemic attack (TIA), and cerebral infarction without residual deficits; Z85.51 Personal history of malignant neoplasm of bladder; Z87.891 Personal history of nicotine dependence; Z79.4 Long term (current) use of insulin; Z79.82 Long term (current) use of aspirin
CPT/HCPCS: C8929; G8978-GP-CL; G8979-GP-CK; G8980-GP-CL; J2405; J2543; J3370; J7030; J7050; P9045